=== PATIENT | female | born 1985 | race Caucasian/White ===

== ENCOUNTER 2021-05-25 23:16 | Emergency (ER) | payer OTHER ==
[~2021-05-25 23:16] MED LIST: CLEOCIN HCL300 MG PO; IBUPROFEN600 MG PO; Viscous lidocaine2% TOP
[2021-05-26 00:09] LABS: HEMOGLOBIN 12.8 gm/dl (12.3-15.3); RED BLOOD COUNT 4.52 M/UL (4.00-5.10); WHITE BLOOD COUNT 10.9 K/UL (4.5-11.0)
[2021-05-26 01:07] LABS: BUN/CREATININE RATIO 17 (0-10)
[2021-05-26] MEDS ORDERED: LODINE CAP 300300 MG PO (04:03)
== END 2021-05-26 04:24 | disposition home or self-care (01) ==
LOC: ER1 23:16
PROVIDERS: Physician Assistant
DX: R07.9 Chest pain, unspecified (principal); Z88.2 Allergy status to sulfonamides
CPT/HCPCS: 71045; 80053; 82550; 82553; 83874; 83880; 84484; 85025; 85379; 85610; 85730; 93005; 99285

== ENCOUNTER 2021-07-05 07:14 | Emergency (ER) | payer OTHER ==
[~2021-07-05 07:14] MED LIST changes: +LODINE CAP 300300 MG PO
[2021-07-05 07:54] LABS: HEMOGLOBIN 13.4 gm/dl (12.3-15.3); RED BLOOD COUNT 4.91 M/UL (4.00-5.10); WHITE BLOOD COUNT 8.8 K/UL (4.5-11.0)
[2021-07-05 08:06] LABS: BUN/CREATININE RATIO 19 (0-10)
[2021-07-05 12:41] LABS: HEMOGLOBIN 11.9 gm/dl (12.3-15.3); WHITE BLOOD COUNT 8.3 K/UL (4.5-11.0)
[2021-07-05 12:46] LABS: RED BLOOD COUNT 4.34 M/UL (4.00-5.10)
[2021-07-05 13:03] LABS: BUN/CREATININE RATIO 17 (0-10)
[2021-07-05] MEDS ORDERED: ZOFRAN ODT 4 MG4 MG PO (13:55)
[2021-07-05] MEDS ORDERED: PEPCID AC20 MG PO (13:55)
== END 2021-07-05 15:00 | disposition home or self-care (01) ==
LOC: ER1 07:14
PROVIDERS: Emergency Medicine
DX: K80.50 Calculus of bile duct without cholangitis or cholecystitis without obstruction (principal); R11.0 Nausea; R10.13 Epigastric pain
CPT/HCPCS: 76705; 80053; 83690; 83735; 84703; 85025; 93005; 96374; 96375; 96376; 99284; C9113; J1170; J1885; J2270; J2405; J2765; J7030; Q9967